=== PATIENT | male | born 1945 | race Caucasian/White ===

== ENCOUNTER → 2023-10-12 10:21 | Outpatient (REF) | payer MEDICARE, BC, SELFPAY ==
[2023-10-12 11:52] LABS: Hematocrit 42.8 % (39.0-52.0); Hemoglobin 14.7 g/dL (13.0-18.0); Mean Corp Hgb Conc. 34.3 g/dL (33.0-37.0); Mean Corpuscular Hgb 32.2 pg (27.0-31.0); Mean Corpuscular Volume 93.9 fL (80.0-94.0); Mean Platelet Volume 10.1 fL (7.4-10.4); Platelet Count 242 10^3/uL (130-400); Red Blood Cell Count 4.56 10^6/uL (4.70-6.10); Red Cell Dist. Width 13.5 % (11.5-14.5); White Blood Cell Count 6.9 10^3/uL (4.8-10.8)
[2023-10-12 12:21] LABS: Blood Urea Nitrogen 23 mg/dl (9-20); Calcium 9.9 mg/dl (8.4-10.2); Carbon Dioxide 28 mmol/L (22-30); Chloride 101 mmol/L (98-107); Glucose 87 mg/dl (70-99); Magnesium 2.3 mg/dl (1.6-2.3); Potassium 4.2 mmol/L (3.5-5.1); Sodium 139 mmol/L (135-145); eGFR > 60.00
[2023-10-12 12:26] LABS: Urine Albumin Negative (Neg - Trace); Urine Bilirubin Negative (Negative); Urine Character Clear (Clear); Urine Color Yellow; Urine Glucose Negative (Negative); Urine Ketone Negative (Negative); Urine Leukocyte Negative (Negative); Urine Nitrite Negative (Negative); Urine Occult Blood Negative (Negative); Urine Specific Gravity 1.015 (<1.030); Urine Urobilinogen 1+ (Neg - 1+)
[2023-10-12 12:55] LABS: TSH Reflex To Free T4 2.84 uIU/ml (0.47-4.68)
[2023-10-12 13:30] LABS: Folate > 20.0 ng/ml (2.76-20); Vitamin B12 672 pg/ml (239-931)
== END ==
LOC: REG 10:21
PROVIDERS: ATTENDING PHYSICIAN Family Medicine
DX: R41.3 Other amnesia (principal); R53.83 Other fatigue; R26.89 Other abnormalities of gait and mobility
CPT/HCPCS: 36415; 80048; 81003; 82607; 82746; 83735; 84443; 85027

== ENCOUNTER 2023-11-08 12:28 | Emergency (ER) | payer MEDICARE, BC, SELFPAY ==
[2023-11-08 12:39] VITALS: BP 115/72
[2023-11-08 13:29] VITALS: BP 141/101
[2023-11-08 13:47] LABS: % Eosinophils 3.7 % (0-6); % Immature Granulocytes 0.2 % (0-0.5); % Lymphocytes 18.7 % (20.5-51.1); % Monocytes 8.3 % (1.7-9.3); % Neutrophils 68.1 % (42.2-75.2); Absolute Basophils 0.1 10^3/uL (0-0.2); Absolute Eosinophils 0.3 10^3/uL (0-0.7); Absolute Lymphocytes 1.7 10^3/uL (1.2-3.4); Absolute Monocytes 0.7 10^3/uL (0.1-0.6); Absolute Neutrophils 6.1 10^3/uL (1.4-6.5); Hematocrit 39.6 % (39.0-52.0); Hemoglobin 13.9 g/dL (13.0-18.0); Mean Corp Hgb Conc. 35.1 g/dL (33.0-37.0); Mean Corpuscular Hgb 32.5 pg (27.0-31.0); Mean Corpuscular Volume 92.5 fL (80.0-94.0); Mean Platelet Volume 9.6 fL (7.4-10.4); Nucleated Red Blood Cells % 0 % (-); Platelet Count 219 10^3/uL (130-400); Red Blood Cell Count 4.28 10^6/uL (4.70-6.10); Red Cell Dist. Width 13.6 % (11.5-14.5); White Blood Cell Count 8.9 10^3/uL (4.8-10.8)
[2023-11-08 14:00] VITALS: BP 147/84
--- NOTE | 2023-11-08 14:02 | ED.GENMED ---
History of Present Illness
General
Chief Complaint: Chest Pain
Time Seen by Provider: 11/08/23 13:49
Travel History
Have you had any contact with someone who has COVID-19?: No
Do you have any symptoms of coronavirus? Fever > 100 degrees, chills, cough, shortness of breath, sore throat, loss of taste or smell, muscle aches, or headache?: No
History of Present Illness
History of Present Illness:
78-year-old male with history of coronary artery disease status post VIRGIL to the LAD in 2009 as well as hypertension and hyperlipidemia presents to the emergency department for evaluation of chest pain that developed while pushing a lawnmower earlier
today. The symptoms have since resolved upon arrival to the emergency department. He reports centralized chest pressure, is unable to determine if this was similar to his past angina. Associated with shortness of breath. Denies any recent fevers
or chills. No pleuritic nature of the pain. No leg swelling or calf cramping. Has been compliant with his medications at home.
Past History
Past History
ED Past Medical History: CAD, GERD, Hypercholesterolemia, Other (Pneumonia, DVT) and Other (Coronary artery disease status post coronary stent, status post prostate cancer with radiation)
ED Past Surgical History: None
Social History
Tobacco: Non-smoker
Alcohol: None
Drug: None
Personal:
Living: with family
Employment: Employed
Family History
Family History: CAD
Review of Systems
Review of Systems
Allergies reviewed?: Yes
All Other Systems: ROS reviewed and negative except as documented in HPI and ROS
Phy Exam
Physical Exam
Physical Exam:
GEN: Well appearing, NAD, WDWN
HEENT: Oral mucosa moist, no scleral icterus
Cardiac: Regular rate and rhythm, no murmur
Lung: No respiratory distress, no tachypnea, lungs clear to auscultation bilaterally
MSK: No gross deformity or injuries
Skin: Good color, no pallor or jaundice, no rashes
Neuro: AO x3, moves all extremities freely
Psych: Calm, cooperative
Scores
Heart Score for Chest Pain Patients
STEMI patient?: No
History: Highly Suspicious
ECG: Normal
Age: >/= 65 years
Risk Factors: >/= 3 Risk Factors or History of CAD
Troponin: </= Normal Limit
Heart Score for Chest Pain Patients: 6
Heart Score Risk: 20.3% MACE over next 6 weeks
Course
Orders/Labs/Results
Orders:
Orders
11/08/23 12:39
ECG [Electrocardiogram (*1)] Urgent
Reason for Study: Chest Pain
EKG- Treatment ONCE
11/08/23 13:34
Complete Blood Count/With Diff Urgent
Comprehensive Metabolic Panel Urgent
11/08/23 14:19
Troponin I Urgent
11/08/23 15:16
EKG- Treatment ONCE
11/08/23 16:23
Troponin I Routine
11/08/23 16:30
EKG [Electrocardiogram (*1)] Routine
Reason for Study: Chest Pain
Abnormal Lab Results
11/08/23
13:34
RBC 4.28 L 10^6/uL
(4.70-6.10)
MCH 32.5 H pg
(27.0-31.0)
Absolute Monos (auto) 0.7 H 10^3/uL
(0.1-0.6)
Lymphocytes % 18.7 L %
(20.5-51.1)
Chloride 111 H mmol/L
(98-107)
BUN 25 H mg/dl
(9-20)
11/08/23 13:34
11/08/23 13:34
Vital Signs
Initial and Last Documented VS:
Initial Vital Signs
Temp Pulse Resp BP Pulse Ox
98.6 F 70 18 115/72 97
11/08/23 12:39 11/08/23 12:39 11/08/23 12:39 11/08/23 12:39 11/08/23 12:39
Last Documented Vital Signs
Temp Pulse Resp BP Pulse Ox
98.6 F 67 18 115/69 98
11/08/23 12:39 11/08/23 17:45 11/08/23 17:15 11/08/23 17:00 11/08/23 17:15
MDM/Problems Addressed
MDM/Problems Addressed:
Patient does have high risk for coronary disease given his known past history of coronary disease and exertional angina presentation. His initial and delta troponins and EKGs are reassuring. 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
who is comfortable with discharge to home, we will add low-dose amlodipine as an antianginal given that his heart rate is low and he has not tolerated metoprolol in the past due to excessive fatigue. He will be referred to the chest pain hotline
for close outpatient follow-up and stress testing to determine next steps in management. Strict ED return parameters discussed
Comment
Comment:
Initial EKG independently interpreted by me shows normal sinus rhythm at a rate of 70 with a first-degree AV block, no overt ST changes concerning for ischemia, QTc is 410. Repeat EKG obtained 3 hours later shows no acute changes
*Critical Care Note
Total Time (30-74mins, 75-104mins- exclusive of procedures): Not Applicable
ED Attending Note
-
Portions of this chart may have been created with voice recognition software.� Occasional wrong word or��sound alike� substitutions may have occurred due to the inherent limitations of voice recognition software.
Discharge Plan
Departure
Patient Disposition: Home (Routine Discharge)
Date of Disposition: 11/08/23
Time of Disposition: 17:51
Patient with high blood pressure during this ER visit?: No
Discharge Problem:
Stable angina
Instructions: Chest Pain DCA Follow Up
Prescriptions:
New
amlodipine 2.5 mg tablet
2.5 mg PO DAILY Qty: 30 0RF
No Action
aspirin 81 MG tablet,delayed release (DR/EC)
81 mg PO HS
Xarelto 15 MG tablet
15 mg PO HS
atorvastatin 40 mg Tablet
40 mg PO HS
acetaminophen [Tylenol Extra Strength] 500 mg Tablet
1,000 mg PO HS
famotidine 20 mg Tablet
20 mg PO HS PRN (Reason: gerd)
Centrum Silver Tablet
1 tab PO MOWEFR@2199
cyanocobalamin (vitamin B-12)
1 tab PO SUTUTHSA@2199
Referrals:
Rasheed Morales DO [Family Provider] -
Activity Restrictions/Additional Instructions:
Your cardiology office will follow up with you about a stress test
If symptoms return, please return to the ER for evaluation
Interventions
Interventions:
*ED COVID-19 Vaccine History Last Done: 11/08/23 12:39
*Nursing Disposition Last Done: 11/08/23 18:10
ED- Cardiac Assessment Last Done: 11/08/23 13:40
Discharge Date and Time
Discharge Date/Time: 11/08/23 18:11
Print Language: SINGAPOREAN
[2023-11-08 14:06] LABS: ALT (SGPT) 18 U/L (0-50); AST (SGOT) 25 U/L (17-59); Alkaline Phosphatase 65 U/L (38-126); Blood Urea Nitrogen 25 mg/dl (9-20); Calcium 9.6 mg/dl (8.4-10.2); Carbon Dioxide 25 mmol/L (22-30); Chloride 111 mmol/L (98-107); Glucose 91 mg/dl (70-99); Potassium 3.9 mmol/L (3.5-5.1); Sodium 140 mmol/L (135-145); Total Bilirubin 1.1 mg/dl (0.2-1.3); Total Protein 6.9 g/dl (6.3-8.2); eGFR > 60.00
[2023-11-08 14:49] LABS: Troponin I < 0.012 ng/ml
[2023-11-08 15:00] VITALS: BP 153/97
[2023-11-08 16:23] VITALS: BP 112/75
[2023-11-08 16:55] LABS: Troponin I < 0.012 ng/ml
[2023-11-08 17:00] VITALS: BP 115/69
== END 2023-11-08 18:11 | disposition home or self-care (01) ==
LOC: EMR 12:28
PROVIDERS: Physician Assistant; EMERGENCY PHYSICIAN Emergency Medicine; FAMILY PHYSICIAN Family Medicine
DX: I25.118 Atherosclerotic heart disease of native coronary artery with other forms of angina pectoris (principal); R07.89 Other chest pain; E78.5 Hyperlipidemia, unspecified; K21.9 Gastro-esophageal reflux disease without esophagitis; E78.00 Pure hypercholesterolemia, unspecified; I10 Essential (primary) hypertension; Z82.49 Family history of ischemic heart disease and other diseases of the circulatory system; Z85.46 Personal history of malignant neoplasm of prostate; Z86.718 Personal history of other venous thrombosis and embolism; Z92.3 Personal history of irradiation; Z95.5 Presence of coronary angioplasty implant and graft
CPT/HCPCS: 99283; 80053; 84484; 85025; 93005

== ENCOUNTER → 2023-11-13 08:04 | Outpatient (REF) | payer MEDICARE, BC, SELFPAY | LOC: RCS 08:04 | PROVIDERS: ATTENDING PHYSICIAN Physician Assistant Medical; FAMILY PHYSICIAN Family Medicine | DX: R07.89 Other chest pain (principal); I25.119 Atherosclerotic heart disease of native coronary artery with unspecified angina pectoris | CPT/HCPCS: 93306 ==

== ENCOUNTER → 2023-11-19 06:52 | Outpatient (REF) | payer MEDICARE, BC, SELFPAY ==
[2023-11-19] MEDS: LEXISCAN 0.400000000000000022 MG IV (08:49)
== END ==
LOC: RCS 06:52
PROVIDERS: ATTENDING PHYSICIAN Physician Assistant Medical; FAMILY PHYSICIAN Family Medicine
DX: R07.89 Other chest pain (principal); I25.119 Atherosclerotic heart disease of native coronary artery with unspecified angina pectoris
CPT/HCPCS: 78452; 93017; A9500; J2785

== ENCOUNTER 2023-12-25 08:55 | Day surgery (SDC) | payer MEDICARE, BC, SELFPAY ==
[2023-12-24 18:21] VITALS: BMI 29.6
[2023-12-25] VITALS (13 sets, daily range): BP systolic 113–143; BP diastolic 64–83
[2023-12-25 09:21] LABS: Hematocrit 39.7 % (39.0-52.0); Hemoglobin 14.1 g/dL (13.0-18.0); Mean Corp Hgb Conc. 35.5 g/dL (33.0-37.0); Mean Corpuscular Hgb 32.6 pg (27.0-31.0); Mean Corpuscular Volume 91.9 fL (80.0-94.0); Mean Platelet Volume 9.7 fL (7.4-10.4); Platelet Count 219 10^3/uL (130-400); Red Blood Cell Count 4.32 10^6/uL (4.70-6.10); White Blood Cell Count 7.1 10^3/uL (4.8-10.8)
[2023-12-25 09:29] LABS: INR 1.07; PT 13.7 Sec (11.4-14.6)
[2023-12-25 09:30] LABS: APTT 24.6 Sec (23.4-35.0)
[2023-12-25] MEDS: LOW STRENGTH ASPIRIN 324 MG PO (10:03)
[2023-12-25 10:06] LABS: ALT (SGPT) 18 U/L (0-50); AST (SGOT) 28 U/L (17-59); Albumin 4.4 g/dl (3.5-5.0); Alkaline Phosphatase 78 U/L (38-126); Blood Urea Nitrogen 20 mg/dl (9-20); Calcium 9.7 mg/dl (8.4-10.2); Carbon Dioxide 24 mmol/L (22-30); Chloride 108 mmol/L (98-107); Estimated Creatinine Clearance 86 ml/min; Glucose 87 mg/dl (70-99); Potassium 3.9 mmol/L (3.5-5.1); Sodium 142 mmol/L (135-145); Total Bilirubin 1.4 mg/dl (0.2-1.3); Total Protein 7.5 g/dl (6.3-8.2); eGFR > 60.00
[2023-12-25] MEDS: NSS 272 ML IV (10:08)
--- NOTE | 2023-12-25 11:56 | ITS.CL.CATH ---
[facility] - Catheterization
Cardiac Catheterization
Procedure Report:
LEFT HEART CATHETERIZATION
Date of Procedure: December 25, 2023
Referring: Dr. Casey Aparicio
PROCEDURES:
1. Left heart catheterization with coronary and single-plane left ventriculography
INDICATION: This is a 78-year-old gentleman with a prior history of coronary artery disease and remote stenting of a sizable diagonal branch with a 2.5 x 18 mm Xience stent after he presented to [facility] with complaints of substernal
chest tightness for which she was referred for coronary angiography. He has been anginal free since this time until approximately 5 weeks ago when he noticed recurring exertional chest tightness and a Lexiscan Myoview stress study was performed.
The perfusion was notable for small mild basal and mid inferior and basal to mid anterior defect which improved with prone imaging and felt consistent with soft tissue attenuation. His LVEF is 56%. He was started on an improved antianginal regimen
and his chest discomfort resolved and he has been feeling well. Now referred for coronary angiography.
ACCESS: Right radial artery, 6 Upper Sorbian sheath
HEMODYNAMICS : (mmHg)
AO (s/d) : 147/86, 113
LV (s/d) : 151/18
LVEDP : 30
CORONARY FINDINGS
DOMINANCE: Right
LEFT MAIN: Normal
LEFT ANTERIOR DESCENDING: The LAD arises normally from the left main and runs in the anterior interventricular groove. The first diagonal branch is large and bifurcating. The stent in the midportion of the diagonal branch is widely patent. The
second diagonal branch is small. The mid LAD beyond the second diagonal branch has an angiographically stable 30% stenosis and there are tandem 40% stenoses in the distal LAD. The LAD wraps around the apex supplying a small portion of the inferior
wall
CIRCUMFLEX: The circumflex is a medium caliber nondominant vessel giving rise to a medium size OM1
RIGHT CORONARY ARTERY: The right coronary artery is a dominant vessel with diffuse noncritical luminal irregularities noted over its course. The PDA is patent. The posterolateral branch is patent.
VENTRICULOGRAPHY: Left ventriculography was performed in ARNDT projection. The digital single-plane left ventricular ejection fraction is estimated at 65% with mild focal anterolateral hypokinesis similar to that noted on the prior ventriculogram
RADIATION SUMMARY: Fluoro Time (min): 5.3, Dose (mGy): 370, DAP (Gy.cm2) : 29.3
Closure Device: TR band
CONCLUSIONS
1. Patent stent in first diagonal branch
2. Angiographically stable coronary artery disease in the mid and distal LAD; asymptomatic on medical therapy
3. Preserved left ventricular systolic function
RECOMMENDATIONS
1. Continued medical therapy
2. His last LDL cholesterol measured in June 2023 was 103 milligrams per deciliter. I would add Zetia to medical regimen for goal LDL cholesterol less than 70 mg/dL
Copy to: Dr. Casey Aparicio
[2023-12-25] MEDS: BENADRYL 25 MG IV (12:49)
== END 2023-12-25 15:40 | disposition home or self-care (01) ==
LOC: CATH 08:55
PROVIDERS: ATTENDING PHYSICIAN Internal Medicine Interventional Cardiology; FAMILY PHYSICIAN Family Medicine
DX: I25.10 Atherosclerotic heart disease of native coronary artery without angina pectoris (principal); R07.89 Other chest pain; I44.0 Atrioventricular block, first degree; R00.1 Bradycardia, unspecified; E78.5 Hyperlipidemia, unspecified; K21.9 Gastro-esophageal reflux disease without esophagitis; Z87.891 Personal history of nicotine dependence; Z95.5 Presence of coronary angioplasty implant and graft; Z85.46 Personal history of malignant neoplasm of prostate; Z79.82 Long term (current) use of aspirin; Z79.01 Long term (current) use of anticoagulants
CPT/HCPCS: 80053; 85027; 85610; 85730; 93005; 93458; C1769; C1894; Q9967

== ENCOUNTER → 2024-04-19 09:37 | Outpatient (REF) | payer MEDICARE, BC, SELFPAY ==
[2024-04-19 11:07] LABS: HDL Cholesterol 50 mg/dl; LDL Cholesterol, Calculated 56 mg/dl; Total Cholesterol 115 mg/dl (50-199); Triglyceride 49 mg/dl (10-149); Very Low Density Lipoprotein 9 mg/dl (0-30)
[2024-04-19 12:05] LABS: Folate > 20.0 ng/ml (2.76-20); Vitamin B12 733 pg/ml (239-931)
== END ==
LOC: REG 09:37
PROVIDERS: ATTENDING PHYSICIAN Family Medicine
DX: E78.2 Mixed hyperlipidemia (principal); Z79.899 Other long term (current) drug therapy
CPT/HCPCS: 36415; 80061; 82607; 82746

== ENCOUNTER → 2024-04-26 10:53 | Outpatient (REF) | payer MEDICARE, BC, SELFPAY ==
[2024-04-26 11:44] LABS: % Eosinophils 4.8 % (0-6); % Immature Granulocytes 0.2 % (0-0.5); % Lymphocytes 21.6 % (20.5-51.1); % Monocytes 11.1 % (1.7-9.3); % Neutrophils 61.3 % (42.2-75.2); Absolute Basophils 0.1 10^3/uL (0-0.2); Absolute Eosinophils 0.3 10^3/uL (0-0.7); Absolute Lymphocytes 1.3 10^3/uL (1.2-3.4); Absolute Monocytes 0.7 10^3/uL (0.1-0.6); Absolute Neutrophils 3.6 10^3/uL (1.4-6.5); Hematocrit 39.8 % (39.0-52.0); Mean Corp Hgb Conc. 35.2 g/dL (33.0-37.0); Mean Corpuscular Hgb 31.7 pg (27.0-31.0); Mean Platelet Volume 9.8 fL (7.4-10.4); Nucleated Red Blood Cells % 0 % (-); Platelet Count 230 10^3/uL (130-400); Red Blood Cell Count 4.42 10^6/uL (4.70-6.10); Red Cell Dist. Width 13.2 % (11.5-14.5); White Blood Cell Count 5.9 10^3/uL (4.8-10.8)
[2024-04-26 11:47] LABS: Urine Albumin Negative (Neg - Trace); Urine Bilirubin Negative (Negative); Urine Character Clear (Clear); Urine Color Yellow; Urine Glucose Negative (Negative); Urine Ketone Negative (Negative); Urine Leukocyte Negative (Negative); Urine Nitrite Negative (Negative); Urine Occult Blood Negative (Negative); Urine Specific Gravity 1.015 (<1.030); Urine Urobilinogen 1+ (Neg - 1+); Urine pH 6.5 (5.0-9.0)
[2024-04-26 12:07] LABS: ALT (SGPT) 24 U/L (0-50); AST (SGOT) 34 U/L (17-59); Albumin 4.3 g/dl (3.5-5.0); Alkaline Phosphatase 83 U/L (38-126); Blood Urea Nitrogen 19 mg/dl (9-20); Calcium 9.6 mg/dl (8.4-10.2); Carbon Dioxide 25 mmol/L (22-30); Chloride 105 mmol/L (98-107); Glucose 86 mg/dl (70-99); Potassium 3.8 mmol/L (3.5-5.1); Sodium 143 mmol/L (135-145); Total Bilirubin 1.3 mg/dl (0.2-1.3); Total Protein 7.2 g/dl (6.3-8.2); eGFR > 60.00
[2024-04-26 12:36] LABS: PSA, Total - Screen 2.96 ng/ml (0.0-4.0)
[2024-04-27 11:16] LABS: Glycohemoglobin (HgbA1c) 5.6 % (4.0-5.6)
== END ==
LOC: REG 10:53
PROVIDERS: ATTENDING PHYSICIAN Family Medicine
DX: Z12.5 Encounter for screening for malignant neoplasm of prostate (principal); Z85.46 Personal history of malignant neoplasm of prostate; R73.03 Prediabetes; Z13.0 Encounter for screening for diseases of the blood and blood-forming organs and certain disorders involving the immune mechanism; D68.59 Other primary thrombophilia; Z13.89 Encounter for screening for other disorder
CPT/HCPCS: 36415; 80053; 81003; 83036; 85025; G0103

== ENCOUNTER 2024-05-10 19:56 | Emergency (ER) | payer MEDICARE, BC, SELFPAY ==
[2024-05-10 19:59] VITALS: BP 140/92
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
[2024-05-10 20:56] VITALS: BMI 28.1
== END 2024-05-10 21:08 | disposition home or self-care (01) ==
LOC: EMR 19:56
PROVIDERS: EMERGENCY PHYSICIAN Emergency Medicine; FAMILY PHYSICIAN Family Medicine
DX: S71.111A Laceration without foreign body, right thigh, initial encounter (principal); X58.XXXA Exposure to other specified factors, initial encounter; I25.10 Atherosclerotic heart disease of native coronary artery without angina pectoris; K21.9 Gastro-esophageal reflux disease without esophagitis; E78.00 Pure hypercholesterolemia, unspecified; Z79.01 Long term (current) use of anticoagulants; Z82.49 Family history of ischemic heart disease and other diseases of the circulatory system; Z85.46 Personal history of malignant neoplasm of prostate; Z86.718 Personal history of other venous thrombosis and embolism; Z95.5 Presence of coronary angioplasty implant and graft
CPT/HCPCS: 99282; 12001

== ENCOUNTER → 2024-06-09 14:07 | Outpatient (REF) | payer MEDICARE, BC, SELFPAY | LOC: RAD 14:07 | PROVIDERS: ATTENDING PHYSICIAN Family Medicine; OTHER PHYSICIAN Internal Medicine Cardiovascular Disease | DX: Z13.6 Encounter for screening for cardiovascular disorders (principal) | CPT/HCPCS: 76770 ==

== ENCOUNTER → 2025-01-21 10:43 | Outpatient (REF) | payer MEDICARE, BC, SELFPAY ==
[2025-01-21 12:06] LABS: Hematocrit 44.7 % (39.0-52.0); Hemoglobin 15.4 g/dL (13.0-18.0); Mean Corp Hgb Conc. 34.5 g/dL (33.0-37.0); Mean Corpuscular Volume 94.9 fL (80.0-94.0); Nucleated Red Blood Cells % 0 % (-); Platelet Count 236 10^3/uL (130-400); Red Cell Dist. Width 13.3 % (11.5-14.5)
[2025-01-21 12:23] LABS: Urine Character Clear (Clear)
[2025-01-21 12:42] LABS: ALT (SGPT) 24 U/L (0-50); AST (SGOT) 29 U/L (17-59); Albumin 4.5 g/dl (3.5-5.0); Alkaline Phosphatase 83 U/L (38-126); Blood Urea Nitrogen 22 mg/dl (9-20); Calcium 9.9 mg/dl (8.4-10.2); Carbon Dioxide 28 mmol/L (22-30); Chloride 108 mmol/L (98-107); Glucose 89 mg/dl (70-99); HDL Cholesterol 56 mg/dl; LDL Cholesterol, Calculated 75 mg/dl; Potassium 4.3 mmol/L (3.5-5.1); Sodium 142 mmol/L (135-145); Total Protein 7.7 g/dl (6.3-8.2); Very Low Density Lipoprotein 12 mg/dl (0-30); eGFR > 60.00
[2025-01-21 13:12] LABS: PSA, Total - Screen 4.18 ng/ml (0.0-4.0); TSH 2.56 uIU/ml (0.47-4.68)
[2025-01-21 14:15] LABS: Glycohemoglobin (HgbA1c) 5.6 % (4.0-5.6)
[2025-01-21 15:17] LABS: Microalb - Urine Creatinine 123.100 mg/dl
[2025-01-21 15:25] LABS: Microalbumin, Random Urine <0.6 mg/dl (0.6-1.7)
== END ==
LOC: REG 10:43
PROVIDERS: ATTENDING PHYSICIAN Family Medicine
DX: Z87.898 Personal history of other specified conditions (principal); I25.118 Atherosclerotic heart disease of native coronary artery with other forms of angina pectoris; I10 Essential (primary) hypertension; D68.51 Activated protein C resistance; Z00.00 Encounter for general adult medical examination without abnormal findings; E78.2 Mixed hyperlipidemia; M25.511 Pain in right shoulder; R73.03 Prediabetes; Z12.5 Encounter for screening for malignant neoplasm of prostate; Z79.899 Other long term (current) drug therapy
CPT/HCPCS: 36415; 73030; 80053; 80061; 81003; 82043; 82570; 83036; 84443; 85025; G0103

== ENCOUNTER → 2025-04-15 12:45 | Outpatient (REF) | payer MEDICARE, BC, SELFPAY ==
[2025-04-15 14:04] LABS: PSA, Total - Screen 4.20 ng/ml (0.0-4.0)
== END ==
LOC: REG 12:45
PROVIDERS: ATTENDING PHYSICIAN Family Medicine
DX: Z00.00 Encounter for general adult medical examination without abnormal findings (principal); Z12.5 Encounter for screening for malignant neoplasm of prostate
CPT/HCPCS: 36415; G0103